=== PATIENT | female | born 1950 | race Caucasian/White ===

== ENCOUNTER 2021-07-06 19:21 | Emergency (ER) | payer OTHER ==
[~2021-07-06] VITALS: Ht 154.9 cm; Wt 67.6 kg
--- NOTE | 2021-07-06 19:25 | NUR ---
Pt BIB [facility] for SOB. Pt is audibly wheezing. AOx4, speaks in complete sentences. Extremities WNL. Denies pain at this time, no distress noted at this time.
[2021-07-06] MEDS ORDERED: IPRATROPIUM BROMIDE 0.5 MG/2.5 ML NEBU NEB ONE (19:30)
[2021-07-06] MEDS ORDERED: ALBUTEROL SULFATE 2.5 MG/3 ML NEBU NEB ONE (19:30)
[2021-07-06 19:51] LABS: HEMATOCRIT 39.7 % (31.2-41.9); MEAN CORPUSCULAR HEMOGLOBIN 30.7 uug (24.7-32.8); MEAN CORPUSCULAR VOLUME 91.4 fL (75.5-95.3); PLATELET COUNT (AUTO) 292 K/uL (179-408)
[2021-07-06 20:01] LABS: CREATININE 0.8 mg/dL (0.6-1.3); POTASSIUM 3.9 mmol/L (3.5-5.1)
[2021-07-06] MEDS ORDERED: ALBUTEROL SULFATE 2.5 MG/3 ML NEBU ONE (20:01)
[2021-07-06] MEDS ORDERED: IPRATROPIUM BROMIDE 0.5 MG/2.5 ML NEBU ONE (20:01)
[2021-07-06 20:14] LABS: BILIRUBIN,DIRECT 0.3 mg/dL (0.0-0.2); BILIRUBIN,TOTAL 0.7 mg/dL (0.2-1.0); TOTAL PROTEIN, SERUM 7.3 g/dL (6.4-8.2)
[2021-07-06] MEDS ORDERED: DOXY-326 PO (21:10)
[2021-07-06] MEDS ORDERED: AMOX-430 PO (21:10)
--- NOTE | 2021-07-06 21:47 | NUR ---
Patient does not wish to proceed with medical care recommended by Dr. Soriano. Patient given information related to possible complications, up to and including , which could occur as a result of leaving the hospital at this time. Patient verbalizes understanding of risks involved due to leaving against medical advice. Patient has signed AMA form. LOC has not changed for duration of visit. All extremities WNL. Steady gait. No SOB or labored breathing. Denies BECKER or dizziness, picked up by friend.
[2021-07-06 21:50] VITALS: BP 150/60
== END 2021-07-06 21:51 | disposition left against medical advice (07) ==
LOC: ER 19:23
DX: J18.9 Pneumonia, unspecified organism (principal); Z20.822 Contact with and (suspected) exposure to COVID-19; R00.0 Tachycardia, unspecified; I25.2 Old myocardial infarction; I00 Rheumatic fever without heart involvement; Z88.2 Allergy status to sulfonamides; Z91.041 Radiographic dye allergy status
CPT/HCPCS: 71045; 83605; 85025; 87040; 93005; A4663; J3590

== ENCOUNTER 2021-12-25 04:11 | Emergency (ER) | payer OTHER ==
[~2021-12-25] VITALS: Ht 157.5 cm; Wt 64.0 kg
[~2021-12-25 04:11] MED LIST: AMOX-430 PO; DOXY-326 PO
[2021-12-25] MEDS ORDERED: ONDANSETRON 4 MG/2 ML VIAL IV ONE ×2 (04:30→06:00)
[2021-12-25] MEDS ORDERED: HYDROMORPHONE 1 MG/1 ML DISP.SYRIN IV ONE (04:30)
[2021-12-25] MEDS ORDERED: KETOROLAC TROMETHAMINE 15 MG INJ IVP ONE (04:30)
[2021-12-25] MEDS ORDERED: ONDANSETRON 4 MG/2 ML VIAL ONE ×2 (04:32→06:02)
[2021-12-25] MEDS ORDERED: HYDROMORPHONE 1 MG/1 ML DISP.SYRIN ONE (04:32)
[2021-12-25] MEDS ORDERED: KETOROLAC TROMETHAMINE 15 MG INJ ONE (04:32)
[2021-12-25 04:48] LABS: HEMATOCRIT 37.7 % (31.2-41.9); MEAN CORPUSCULAR HEMOGLOBIN 30.5 uug (24.7-32.8); PLATELET COUNT (AUTO) 308 K/uL (179-408)
--- NOTE | 2021-12-25 04:54 | NUR ---
pt bib from home for c/o headache. pt is able to ambulate with steady gait. clear speech noted.
[2021-12-25 04:58] LABS: CARBON DIOXIDE 32 mmol/L (21-32); CHLORIDE 98 mmol/L (98-107); CREATININE 1.1 mg/dL (0.6-1.3); GLUCOSE 111 mg/dL (74-106); POTASSIUM 4.3 mmol/L (3.5-5.1); UREA NITROGEN, BLOOD 14 mg/dL (7-18)
[2021-12-25 05:29] LABS: MAGNESIUM 1.6 mg/dL (1.8-2.4)
--- NOTE | 2021-12-25 05:32 | NUR ---
pt is allergic to iodine, order has been changed to head ct without contrast.
--- NOTE | 2021-12-25 05:37 | NUR ---
informed the pt that the doctor ordered a cat scan of the head. I told her the cat scan machine does not work at this hospital and she need to be sent to [facility] by ambulance. Pt is an agreement.
--- NOTE | 2021-12-25 05:44 | NUR ---
call to [facility] ambulance for transport to [facility] the pt needs to have a cat scan of the head. informed eta is approximatly 0700.
[2021-12-25] MEDS ORDERED: MAGNESIUM SULFATE/D5W 300 ML ONE (05:46)
[2021-12-25] MEDS: MAGNESIUM SULFATE/D5W 100 ML IV SCH ×3 (05:59→07:04)
[2021-12-25] MEDS ORDERED: ATEN25TA PO (07:07)
[2021-12-25] MEDS ORDERED: ASPI81TA31 PO (07:07)
[2021-12-25] MEDS ORDERED: DULO20CA PO (07:07)
[2021-12-25] MEDS ORDERED: LOSA25TA3 PO (07:07)
[2021-12-25] MEDS ORDERED: PANT40TA2 PO (07:07)
[2021-12-25] MEDS ORDERED: COLC0.6C3 PO (07:07)
[2021-12-25] MEDS ORDERED: CLOP75TA15 PO (07:07)
--- NOTE | 2021-12-25 07:16 | NUR ---
report given to day shift rn
--- NOTE | 2021-12-25 07:19 | NUR ---
[facility] [address] emt transporting the pt to [facility] for a cat scan of the head as the cat scan machine does not work at this hospital.
--- NOTE | 2021-12-25 07:49 | NUR ---
Patient is in [facility] CT scan department@this time.
--- NOTE | 2021-12-25 08:37 | NUR ---
Patient is back from [facility]. Patient is AOx4, calmk & breathing easily, NAD, pending results and disposition
--- NOTE | 2021-12-25 09:00 | NUR ---
Patient is waiting for her ride. Patient denies any discomfort@this time. Patient is for discharge now per Dr Jatin Mtz.
[2021-12-25] MEDS ORDERED: MAGNESIUM SULFATE/D5W 100 ML ONE (09:07)
--- NOTE | 2021-12-25 09:29 | NUR ---
All 3 bags of IV magnesium infused.
--- NOTE | 2021-12-25 09:29 | NUR ---
IV removed. Catheter intact and site benign. Pressure and 4x4 gauze applied to site. No bleeding noted. Patient discharged to home in stable condition with slow steady gait. Written and verbal after care instructions given. Patient verbalized understanding of instructions. Stressed follow up with primary doctor and neurologist or return to ER for worsening s/s.
[2021-12-25] MEDS ORDERED: HYDR2TAB4 PO (23:36)
== END 2021-12-25 09:31 | disposition home or self-care (01) ==
LOC: ER 04:12
DX: R51.9 Headache, unspecified (principal); E83.42 Hypomagnesemia; M83.9 Adult osteomalacia, unspecified; S16.1XXA Strain of muscle, fascia and tendon at neck level, initial encounter; X58.XXXA Exposure to other specified factors, initial encounter; Y92.89 Other specified places as the place of occurrence of the external cause; I25.2 Old myocardial infarction; R73.03 Prediabetes; G62.9 Polyneuropathy, unspecified; Z88.2 Allergy status to sulfonamides; Z91.041 Radiographic dye allergy status; Z79.02 Long term (current) use of antithrombotics/antiplatelets; Z79.82 Long term (current) use of aspirin; Z79.899 Other long term (current) drug therapy
CPT/HCPCS: 99284; 96365; 96366; 96375; 70450; 80048; 82607; 83735; 85025; 85379; 85651; 36415; 72040; 72072; 96376; J1885; J3475 ×2; J2405 ×2; J1170; A4663

== ENCOUNTER 2021-12-25 20:08 | Emergency (ER) | payer OTHER ==
[~2021-12-25] VITALS: Ht 162.6 cm; Wt 64.0 kg
[~2021-12-25 20:08] MED LIST changes: +ASPI81TA31 PO; +ATEN25TA PO; +CLOP75TA15 PO; +COLC0.6C3 PO; +DULO20CA PO; +LOSA25TA3 PO; +PANT40TA2 PO
--- NOTE | 2021-12-25 20:18 | NUR ---
pt in room 1a bib ra from home for sob. pt was previously here in the er and was released at 3pm today for a c/o of h/a and eye pain.
--- NOTE | 2021-12-25 20:26 | NUR ---
Dr. Berman at bedside for MSE.
[2021-12-25] MEDS ORDERED: HYDROMORPHONE 1 MG/1 ML DISP.SYRIN ONE (20:44)
[2021-12-25] MEDS ORDERED: ONDANSETRON 4 MG/2 ML VIAL ONE (20:44)
[2021-12-25] MEDS ORDERED: ONDANSETRON 4 MG/2 ML VIAL IV ONE (20:45)
[2021-12-25] MEDS ORDERED: IV NORMAL SALINE 500 ML BAG IV ONE (20:45)
[2021-12-25] MEDS ORDERED: HYDROMORPHONE 1 MG/1 ML DISP.SYRIN IV ONE (20:45)
--- NOTE | 2021-12-25 20:57 | NUR ---
pt left the room she was complaining the pt in the second bed was to loud. She is now sitting in a chair in the er. Dr. Berman was made aware of what has occured. I tried to start an iv on the pt but on 2 attempts the pt moves and it was unsuccessful. I informed Hector HERRMANN to attept the iv.
[2021-12-25 21:17] LABS: HEMATOCRIT 36.5 % (31.2-41.9); MEAN CORPUSCULAR HEMOGLOBIN 30.3 uug (24.7-32.8); MEAN CORPUSCULAR VOLUME 91.2 fL (75.5-95.3); PLATELET COUNT (AUTO) 298 K/uL (179-408)
--- NOTE | 2021-12-25 21:32 | NUR ---
pt ambulated to room 2a, respiratory therapist made aware i placed the pt back on 4 liters nc as sat is 88 percent. i informed resp that i previously gave the pt 0.5 mg of dilaudid ivp
[2021-12-25 21:46] LABS: CARBON DIOXIDE 29 mmol/L (21-32); CHLORIDE 97 mmol/L (98-107); CREATININE 1.3 mg/dL (0.6-1.3); GLUCOSE 135 mg/dL (74-106); POTASSIUM 4.9 mmol/L (3.5-5.1); UREA NITROGEN, BLOOD 18 mg/dL (7-18)
--- NOTE | 2021-12-25 21:59 | NUR ---
abg results on 4 liters ph 7.38 co2 41.2 po2 143 hco3 23.9 decreased o2 to 2 liters.
[2021-12-25] MEDS ORDERED: ASPIRIN 81 MG TAB.CHEW PO ONE (22:15)
[2021-12-25] MEDS ORDERED: NITROGLYCERIN OINT 1 GM PACKET TP ONE ×2 (22:15→22:24)
[2021-12-25] MEDS ORDERED: ENOXAPARIN SODIUM 60 MG/0.6 ML DISP.SYRIN SQ ONE ×2 (22:15→22:24)
--- NOTE | 2021-12-25 22:16 | NUR ---
informed er patient insurance clerk to check insurance for admission to the hospital. pt has [employer]. she states she will start the process.
[2021-12-25] MEDS ORDERED: ASPIRIN 81 MG TAB.CHEW ONE (22:24)
[2021-12-25 22:32] VITALS: BP 110/55
--- NOTE | 2021-12-25 23:07 | NUR ---
pt removed heart monitor removed pulse ox pt wants to leave. pt is non compliant. I alerted the charge nurse and alerted Dr. Berman.
--- NOTE | 2021-12-25 23:29 | NUR ---
Dr. Berman is in speaking with the pt.
[2021-12-25] MEDS ORDERED: HYDR2TAB4 PO (23:36)
--- NOTE | 2021-12-25 23:45 | NUR ---
Patient does not wish to proceed with medical care recommended by Dr. Berman. Patient given information related to possible complications, up to and including , which could occur as a result of leaving the hospital at this time. Patient verbalizes understanding of risks involved due to leaving against medical advice. Patient has signed AMA form. pt left to the waiting room I advised the er court clerk will call her a cab.
[2021-12-26 00:19] LABS: ABG BASE EXCESS -1.1 mmol/L; ABG HCO3 23.9 mmol/L; ABG PCO2 41.2 mmHg (35.0-45.0); ABG PH 7.382 (7.350-7.450); ABG PO2 143.3 mmHg (75.0-100.0); ABG SITE RIGHT RADIAL; ABG TOTAL HEMOGLOBIN 11.1 G/dL (12.0-16.0); COHb 0.3 % (0.5-1.5); MetHb 0.3 % (0.0-1.5); VENT MODE Nasal Cannula
== END 2021-12-25 23:47 | disposition left against medical advice (07) ==
LOC: ER 20:08
DX: R06.00 Dyspnea, unspecified (principal); S16.1XXA Strain of muscle, fascia and tendon at neck level, initial encounter; X58.XXXA Exposure to other specified factors, initial encounter; Y92.89 Other specified places as the place of occurrence of the external cause; E83.42 Hypomagnesemia; M83.9 Adult osteomalacia, unspecified; I45.10 Unspecified right bundle-branch block; D72.829 Elevated white blood cell count, unspecified; R70.0 Elevated erythrocyte sedimentation rate; R51.9 Headache, unspecified; M04.1 Periodic fever syndromes; Z79.02 Long term (current) use of antithrombotics/antiplatelets; Z79.899 Other long term (current) drug therapy; Z88.2 Allergy status to sulfonamides; Z91.041 Radiographic dye allergy status; I25.2 Old myocardial infarction; Z53.29 Procedure and treatment not carried out because of patient's decision for other reasons
CPT/HCPCS: 99285; 96374; 71045; 96361; 96375; 80048; 83880; 85025; 85379; 84484; 36415; 93005; 82803; 96372; 36600 ×2; J1650; J2405; J1170; J7040